=== PATIENT | female | born 1980 | race African-American/Black ===

== ENCOUNTER 2016-09-10 11:35 | Emergency (ER) | payer MEDICAID, OTHER ==
[~2016-09-10] VITALS: Ht 175.3 cm; Wt 88.5 kg
[~2016-09-10 11:35] MED LIST: IBUP-238 PO; MUCI600T PO; PSEU30TA PO; Z.0.NO CURRENT MEDS
[2016-09-10 11:37] VITALS: BP 125/71; PULSE 88; RESP 20; TEMP 98.7; O2SAT 98
[2016-09-10] MEDS ORDERED: AZIT250T3 PO (13:09)
--- NOTE | 2016-09-10 13:09 | PD ---
HPI Chief Complaint: Cold / Flu Symptoms Time Seen by Provider: 13:07 Travel History International Travel<30 days: No Contact w/Intl Traveler<30days: No Traveled to known affect area: No History of Present Illness HPI Patient 36-year-old female presents to the emergency Department with 2 weeks worth of upper respiratory infection symptoms including cough cold congestion. She states she started having some diarrhea as well. She states that both her daughter and her were sick recently with similar. She states that she's been having some chills without subjective fever. She's also been having some intermittent nonbloody diarrhea. Denies any abdominal pain vaginal bleeding vaginal discharge. Denies possibility for . PFSH Past Medical History Gastrointestinal Disorders: Yes ("bacterial infection in intestines") Influenza Vaccination: No ?: Unknown : 3 Para: 2 : 1 Past Surgical History Neurologic Surgery: Yes (reconstructive nerve surgery to left side of face) Social History Alcohol Use: Yes (OCC.) Tobacco Use: Yes Substance Use: No Allergies-Medications (Allergen,Severity, Reaction): Coded Allergies: No Known Allergies (Verified , 09/10/16) Reported Meds & Prescriptions Reported Meds & Active Scripts Active Azithromycin 250 Mg Tab 250 Mg PO DIRECTED Take 2 tabs (500 mg) on day 1 then 1 tab daily x 4 days. Pseudoephedrine HCl 30 Mg Tab 30 Mg PO Q6H PRN Motrin (Ibuprofen) 800 Mg Tab 800 Mg PO TID PRN Mucinex (Guaifenesin) 600 Mg Tabcr 600 Mg PO BID PRN Reported No Current Meds (Miscellaneous Medication) Misc Review of Systems Except as stated in HPI: all other systems reviewed are Neg Physical Exam Narrative GENERAL: Well-developed well-nourished no apparent distress SKIN: Focused skin assessment warm/dry. HEAD: Atraumatic. Normocephalic. EYES: Pupils equal and round. No scleral icterus. No injection or drainage. ENT: No nasal bleeding or discharge. Mucous membranes pink and moist. TMs clear bilaterally, oropharynx minimally erythematous. NECK: Trachea midline. No JVD. CARDIOVASCULAR: Regular rate and rhythm. No murmur appreciated. RESPIRATORY: No accessory muscle use. Clear to auscultation. Breath sounds equal bilaterally. GASTROINTESTINAL: Abdomen soft, non-tender, nondistended. Hepatic and splenic margins not palpable. No rebound no percussive tenderness. MUSCULOSKELETAL: No obvious deformities. No clubbing. No cyanosis. No edema. NEUROLOGICAL: Awake and alert. No obvious cranial nerve deficits. Motor grossly within normal limits. Normal speech. PSYCHIATRIC: Appropriate mood and affect; insight and judgment normal. Data Data Last Documented VS Vital Signs Date Time Temp Pulse Resp B/P Pulse Ox O2 Delivery O2 Flow Rate FiO2 09/10/16 11:37 98.7 88 20 125/71 98 Room Air MDM Medical Decision Making Medical Screen Exam Complete: Yes Emergency Medical Condition: Yes Differential Diagnosis URI, pneumonia seems unlikely, gastritis, gastritis, influenza. Narrative Course Patient offered chest x-ray and she declined. Really there is no indication for test of flu this time as the patient is outside of indications for Tamiflu or aggressive therapy.. Given 2 weeks of symptoms recommended that she have antibiotics for possible superimposed bacterial infection. She is agreeable this time. Diagnosis Primary Impression: URI (upper respiratory infection) Qualified Code: J06.9 - Viral upper respiratory tract infection Departure Forms: Tests/Procedures, Work Release Enter return to work date: Sep 12, 2016 Med/Other Pt SpecificInfo: Prescription(s) given Scripts Azithromycin 250 Mg [id number] Mg PO DIRECTED #6 TAB Ref 0 Take 2 tabs (500 mg) on day 1 then 1 tab daily x 4 days. Prov:Gerardo Proctor MD 09/10/16 Disposition: 01 DISCHARGE HOME Condition: Stable Gerardo Proctor MD Sep 10, 2016 13:09
== END 2016-09-10 13:21 | disposition home or self-care (01) ==
LOC: NEPD 11:35
DX: J06.9 Acute upper respiratory infection, unspecified (principal); Z72.0 Tobacco use
CPT/HCPCS: 99283